=== PATIENT | female | born 1960 | race Caucasian/White ===

== ENCOUNTER 2018-08-30 12:39 | Emergency (ER) | payer OTHER ==
[~2018-08-30 12:39] MED LIST: ESTR1PAT46 TD
[2018-08-30 13:27] LABS: APPEARANCE,URINE TURBID (CLEAR); BILIRUBIN,URINE SMALL (NEGATIVE); GLUCOSE, URINE (UA) NEGATIVE (NEGATIVE); KETONES,URINE 40 mg/dL (NEGATIVE); LEUKOCYTE ESTERASE ,URINE LARGE (NEGATIVE); NITRATE,URINE POSITIVE (NEGATIVE); OCCULT BLOOD,URINE LARGE (NEGATIVE); PH,URINE 6.5 (5.0-8.0); PROTEIN,URINE >=300 (NEGATIVE)
[2018-08-30 13:29] LABS: COLOR,URINE Amber (YELLOW)
[2018-08-30 13:33] LABS: WBC,URINE TNTC /HPF (0-1)
[2018-08-30 13:34] LABS: BACTERIA,URINE Few /HPF (None Seen); SQUAMOUS EPITHELIAL CELL,UR Rare /HPF (0-2)
[2018-08-30] MEDS ORDERED: LIDOCAINE HCL-MPF 1% 2ML VIAL ONE (14:20)
[2018-08-30] MEDS ORDERED: CEFTRIAXONE SODIUM 1 GM ONE (14:20)
[2018-08-30] MEDS ORDERED: PHENAZOPYRIDINE HCL 200 MG TABLET ONE (14:20)
== END 2018-08-30 14:26 | disposition home or self-care (01) ==
LOC: EDH 12:39
DX: N39.0 Urinary tract infection, site not specified (principal)
CPT/HCPCS: 81001; 96372; 99283; J0696; J3490

== ENCOUNTER 2020-08-22 10:41 | Emergency (ER) | payer OTHER | END 2020-08-22 12:37 | disposition home or self-care (01) | LOC: EDH 10:41 | DX: S09.90XA Unspecified injury of head, initial encounter (principal); R20.2 Paresthesia of skin; W06.XXXA Fall from bed, initial encounter; Y93.89 Activity, other specified; Y92.89 Other specified places as the place of occurrence of the external cause; Y99.8 Other external cause status | CPT/HCPCS: 70450 ==